=== PATIENT | male | born 1990 | race Caucasian/White ===

== ENCOUNTER 2018-05-05 16:46 | Emergency (ER) | payer SELFPAY ==
[~2018-05-05] VITALS: Ht 190.5 cm; Wt 166.0 kg
[2018-05-06] MEDS ORDERED: IBUPROFEN 800MG TABLET PO ONE (00:45)
[2018-05-06] MEDS ORDERED: CYCLOBENZAPRINE 10MG TABLET PO ONE (02:15)
[2018-05-06 04:12] VITALS: BP 146/68
== END 2018-05-06 04:13 | disposition home or self-care (01) ==
LOC: ER 16:46
DX: S13.9XXA Sprain of joints and ligaments of unspecified parts of neck, initial encounter (principal); S50.11XA Contusion of right forearm, initial encounter; V98.8XXA Other specified transport accidents, initial encounter; Y93.89 Activity, other specified; Y92.89 Other specified places as the place of occurrence of the external cause; Y99.8 Other external cause status; Z90.89 Acquired absence of other organs
CPT/HCPCS: 73080; 73090; 73110; 99284